=== PATIENT | female | born 1930 | race Caucasian/White ===

== ENCOUNTER → 2021-03-16 | Outpatient (CLI) | payer MEDICARE, OTHER ==
[~2021-03-16] MED LIST: ACTONEL PO; CALCIUM CITR PO; CELE200 PO; CEPH500 PO; FLUSAL2505 IH; HYDACE5 PO; LANS30EC PO; LEVSOD125 PO; MULVITMIND PO; OMEGA 3/FISH OIL PO; POTCHL10ER PO; TRIHYD253A PO; VERA240ER PO; VITAMIN D 3 PO; [UNRECOGNIZED DRUG - OTHER] PO
== END | disposition home or self-care (01) ==
LOC: LAB SHORT 18:05
DX: N17.0 Acute kidney failure with tubular necrosis (principal)

== ENCOUNTER → 2021-04-20 | Outpatient (CLI) | payer MEDICARE, OTHER ==
[2021-04-22 12:12] LABS: CALCIUM, SERUM 9.1 mg/dL (8.7-10.3); CREATININE, SERUM 1.45 mg/dL (0.57-1.00); POTASSIUM, SERUM 5.4 mmol/L (3.5-5.2)
== END ==
LOC: LAB SHORT 18:23
PROVIDERS: Hospitalist
DX: N18.32 Chronic kidney disease, stage 3b (principal)
CPT/HCPCS: 80048